=== PATIENT | male | born 1960 | race Caucasian/White ===

== ENCOUNTER 2017-07-28 17:33 | Inpatient (IN) | payer BC, OTHER, SELFPAY ==
[2017-07-28 18:44] LABS: #Eosinphils 0.2 thou/uL (0.0-0.7); #Lymphocytes 2.4 thou/uL (1.20-3.40); #Monocytes 0.6 thou/uL (0.11-0.59); #Neutrophils 4.1 thou/uL (1.40-6.50); %Eosinophils 2.3 % (0.0-10.0); %Lymphocytes 32.7 % (21.0-51.0); %Monocytes 8.1 % (0.0-10.0); Hematocrit 52.4 % (42.0-52.0); Mean Platelet Volume 8.6 fL (7.4-10.4); Red Blood Cell (RBC) Count 6.06 mill/uL (4.70-6.10); White Blood Cell (WBC) Count 7.2 thou/uL (4.8-10.8)
[2017-07-28 18:50] LABS: PTT 29.2 SEC (22.9-36.1); Prothrombin Time 14.1 SEC (12.0-14.7)
[2017-07-28 19:13] LABS: ALT (SGPT) 25 U/L (8-55); AST (SGOT) 29 U/L (5-34); Alkaline Phosphatase 67 U/L (40-150); Anion Gap 14 mmol/L (10-20); BUN (Urea Nitrogen) 18 mg/dL (8.4-25.7); Bilirubin, Total 0.6 mg/dL (0.2-1.2); Calc. Creatinine Clearance 0 mL/min (70-130); Calcium 9.4 mg/dL (7.8-10.44); Carbon Dioxide 20 mmol/L (22-29); Chloride 107 mmol/L (98-107); Estimated GFR-MDRD 66; Globulin 3.6 g/dL (2.4-3.5); Troponin I 0.014 ng/mL (< 0.028)
--- NOTE | 2017-07-28 19:53 | RAD ---
PORTABLE CHEST: Date: 07-28-17 History: Atrial fibrillation. Comparison: 04-15-17 FINDINGS: Cardiac silhouette and pulmonary vasculature are within normal limits for the technique of the study . The lungs are clear. Pacing pads noted on prior study are no longer seen. No other interval change . IMPRESSION: No acute cardiopulmonary process. POS: [facility]
[2017-07-28] MEDS ORDERED: Acetaminophen 325 MG TAB PO PRN ×2 (20:18→20:33)
[2017-07-28] MEDS ORDERED: Acetaminophen 650 MG Suppository PR PRN (20:18)
[2017-07-28] MEDS ORDERED: Ondansetron ODT 4 MG TAB SL PRN (20:33)
[2017-07-28] MEDS ORDERED: Ondansetron HCl/PF 4 MG/2 ML Vial IVP PRN (20:33)
[2017-07-28] MEDS ORDERED: HYDROcodone/Acetaminophen 5/325 mg Tablet PO PRN ×2 (20:33)
[2017-07-28 20:46] VITALS: BMI 25.7
[2017-07-28] MEDS ORDERED: Metoprolol Tartrate 25 MG TAB PO SCH (21:00)
[2017-07-28] MEDS ORDERED: Dronedarone HCl 400 MG TAB PO SCH (21:00)
[2017-07-28 21:40] LABS: Troponin I Less than 0.010 ng/mL (< 0.028)
[2017-07-28 21:55] LABS: Free T3 2.38 pg/mL (1.71-3.71)
[2017-07-28] MEDS: Apixaban 5 MG TAB PO SCH (22:02)
--- NOTE | 2017-07-28 22:59 | HP ---
DATE OF ADMISSION: 07/28/2017 PRIMARY CARE PHYSICIAN: Lopez Varner M.D. CHIEF COMPLAINT: Palpitations. HISTORY OF PRESENT ILLNESS: Mr. Guaman is a pleasant 57-year-old gentleman who was seen at [facility]. He reports that around 3 days ago, he developed rapid heart rate and palpitations after supper. He reports that it has been going on and off for the last 3 days. He reports feeling lightheaded. Tod ay morning, he woke up with a heart rate in the high 70s. He continued to be lightheaded. He, ther efore, came to the emergency room. He denies any fevers or chills. He denies any nausea or vomiting. He denies any chest pain. He de nies any abdominal pain. REVIEW OF SYSTEMS: The following complete review of systems was negative, unless otherwise mentione d in the HPI or below: Constitutional: Weight loss or gain, sense of well-being, ability to conduct usual activities, exer cise tolerance. Skin/Breast: Rash, itching, changes in hair growth or loss, nail changes, breast lumps, tenderness, swelling, nipple discharge. Eyes: Vision, double vision, tearing, blind spots, pain. ENT/Mouth: Headaches (location, time of onset, duration, precipitating factors), vertigo, lighthead edness, injury. Vision, double vision, tearing, blind spots, pain, nose bleeding, colds, obstruction , discharge, dental difficulties, gingival bleeding, dentures, neck stiffness, pain, tenderness, mas ses in thyroid or other areas. Cardiovascular: Precordial pain, substernal distress, palpitations, syncope, dyspnea on exertion, o rthopnea, nocturnal paroxysmal dyspnea, edema, cyanosis, hypertension, heart murmurs, varicosities, phlebitis, claudication. Respiratory: Pain, shortness of breath, wheezing, stridor, cough, hemoptysis, fever or night sweats . Gastrointestinal: Poor appetite, dysphagia, indigestion, abdominal pain, heartburn, eructation, ro[place]anna sea, vomiting, hematemesis, jaundice, constipation, or diarrhea, abnormal stools (ana paula-colored, rosalba y, bloody, greasy, foul smelling), flatulence, hemorrhoids, recent changes in bowel habits. Genitourinary: Urgency, frequency, dysuria, nocturia, hematuria, polyuria, oliguria, unusual (or ch velia in) color of urine, stones, hesitancy, change in size of stream, dribbling, acute retention or incontinence, libido, potency. Musculoskeletal: Pain, swelling, redness or heat of muscles or joints, limitation, of motion, muscu lar weakness, atrophy, cramps. Neurologic/Psychiatric: Convulsions, paralyses, tremor, incoordination, parasthesias, difficulties with memory of speech, sensory or motor disturbances, or muscular coordination (ataxia, tremor), emo tional problems, anxiety, depression, previous psychiatric care, unusual perceptions, hallucinations . Allergy/Immunologic: Skin rash, anemia, bleeding tendency, polydipsia, polyuria, intolerance to hea t or cold. PAST MEDICAL HISTORY: Significant for atrial fibrillation with ablations in March and June 2017 . PAST SURGICAL HISTORY: Significant for right shoulder surgery, appendectomy, and right hand surgery . SOCIAL HISTORY: The patient denies tobacco use, alcohol use, or recreational drug use. FAMILY HISTORY: Significant for heart disease in his grandfather. ALLERGIES: No known drug allergies. CURRENT MEDICATIONS: Include Eliquis 5 mg 2 times a day, Multaq 400 mg 2 times a day, started on , and metoprolol tartrate 25 mg daily, started on 07/26/2017. PHYSICAL EXAMINATION: GENERAL: Mr. Guaman is awake and alert, not in acute distress. VITAL SIGNS: Blood pressure is 111/72, pulse is 96, he is breathing at a rate of 16, and saturating 96% on room air. EYES: No scleral icterus. No conjunctival pallor. ENT: Moist mucous membranes, no oropharyngeal erythema or exudates. NECK: Supple, nontender, normal range of movement. Trachea is midline. RESPIRATORY: Accessory muscles of breathing not active. Chest wall movements are symmetric bilater ally. Lungs are clear to auscultation without wheeze, rhonchi, or crepitations. CARDIOVASCULAR: S1 and S2 are heard, irregular. Peripheral pulses are palpable. No carotid bruit, no pericardial rub. ABDOMEN: Soft, nontender, bowel sounds heard, no hepatomegaly, no splenomegaly. NEUROLOGIC: Cranial nerves II through XII intact, deep tendon reflexes 2+. SKIN: No rashes or subcutaneous nodules. PSYCHIATRIC: Normal mood, normal affect, the patient is oriented to time, place, and person. LYMPHATIC: No cervical lymphadenopathy. MUSCULOSKELETAL: Power is 5/5 in all 4 extremities, normal range of movement at all major extremiti es joints. LABORATORY DATA: Mr. Stuart's labs and investigations were reviewed. He had an electrocardiogram, which showed atrial fibrillation/flutter, no ST changes to suggest acute coronary syndrome. He also had a chest x-ray, which did not show any pulmonary infiltrates. Laboratory investigations show an unremarkable CBC, INR 1.1, and an unremarkable comprehensive metabolic profile. TSH is elevated at 6.8263. ASSESSMENT AND PLAN: Mr. Guaman is a pleasant 57-year-old gentleman who was seen at [facility] on 07/28/2017. His problem list includes: 1. Atrial fibrillation with rapid ventricular response: Mr. Guaman's ventricular response has dec reased after he was started on Cardizem drip. With improvement in the heart rate, we will admit Mr. Guaman to the hospital and continue him on Cardizem drip for now. We will consult Cardiology Serv ice for the opinion and help with further management. It appears that Mr. Guaman started Multaq an d metoprolol on his own now after symptoms started. We will hold those medications for now. We jimbo l continue Eliquis. 2. Elevated TSH: Check free T3 and free T4. LEVEL OF RISK: Moderate. LEVEL OF COMPLEXITY: Moderate.
[2017-07-29 00:08] LABS: Troponin I Less than 0.010 ng/mL (< 0.028)
[2017-07-29 05:49] LABS: #Basophils 0.1 thou/uL (0.0-0.2); #Eosinphils 0.1 thou/uL (0.0-0.7); #Lymphocytes 2.2 thou/uL (1.20-3.40); #Monocytes 0.7 thou/uL (0.11-0.59); #Neutrophils 4.2 thou/uL (1.40-6.50); %Basophils 0.7 % (0.0-1.0); %Eosinophils 1.7 % (0.0-10.0); %Lymphocytes 30.3 % (21.0-51.0); %Monocytes 9.3 % (0.0-10.0); Hematocrit 49.9 % (42.0-52.0); Mean Platelet Volume 8.2 fL (7.4-10.4); Red Blood Cell (RBC) Count 5.77 mill/uL (4.70-6.10); White Blood Cell (WBC) Count 7.3 thou/uL (4.8-10.8)
[2017-07-29 07:21] LABS: Chloride 107 mmol/L (98-107)
[2017-07-29 07:22] LABS: Calcium 9.2 mg/dL (7.8-10.44)
[2017-07-29 07:24] LABS: Anion Gap 11 mmol/L (10-20); Carbon Dioxide 24 mmol/L (22-29)
[2017-07-29 07:26] LABS: BUN (Urea Nitrogen) 20 mg/dL (8.4-25.7); Calc. Creatinine Clearance 71 mL/min (70-130); Estimated GFR-MDRD 65
[2017-07-29] MEDS: Apixaban 5 MG TAB PO SCH ×2 (09:19→20:42)
--- NOTE | 2017-07-29 11:29 | CON ---
DATE OF CONSULTATION: 07/29/2017 HISTORY: The patient is a 56-year-old gentleman with a long history of atrial fibrillation/flutter who presents with recurrent palpitations. The patient has a history of a cardiomyopathy. He was seen initially in 2002. He underwent a cardiac catheterization and was found to have normal coronary arteries. The patient has history of atrial fibrillation /flutter. He was admitted several months ago with rapid palpitations. He underwent radiofrequency ablation for atrial flutter. He underwent an echocardiogram at that time which revealed a mild decreased left ventricular ejection fraction of 40-45%. The patient subsequently underwent an ablation for atrial fibrillation in [place]. A few days ago the patient noted his heart was racing. He was told to restart his Multaq and Toprol. The patient came to the emergency room when his heart rate became very rapid. The patient states he felt dizzy. PAST MEDICAL HISTORY: 1. Cardiomyopathy. 2. GE reflux. PAST SURGICAL HISTORY: Appendectomy, hand surgery, shoulder surgery. MEDICATIONS ON ADMISSION: Eliquis 5 mg p.o. b.i.d., Multaq 400 b.i.d., Metoprolol 1 tablet daily. ALLERGIES: No known drug allergies. FAMILY HISTORY: No strong family history of coronary artery disease. REVIEW OF SYSTEMS: No history of easy bruising or bleeding, bright red blood per rectum. Ten-point system otherwise unremarkable. PHYSICAL EXAMINATION: GENERAL: Thin gentleman in no acute distress. VITAL SIGNS: Blood pressure is 111/68. NECK: No jugular venous distention, no carotid bruits. LUNGS: Clear to auscultation. HEART: Regular rate and rhythm, normal S1, S2, no murmurs. ABDOMEN: Nondistended. EXTREMITIES: No edema. SKIN: Warm and dry. NEUROLOGIC: Nonfocal. VASCULAR: Radial pulses 2+. LABORATORY DATA: Sodium 138, potassium 4.4, chloride 107, bicarbonate 24, BUN 20, creatinine 1.16, glucose 65, troponin less than 0.01. White blood cell count 7.3, hemoglobin 16.2, hematocrit 49.9, platelets are 208. INR is 1.1. EKG revealed atrial flutter with otherwise, unremarkable EKG. IMPRESSION: 1. Recurrent atrial flutter. 2. History of a cardiomyopathy. This gentleman presents with recurrent atrial flutter. We will ask EP to evaluate the patient. The patient will remain on Eliquis. Further recommendations will follow. MTDD
[2017-07-29] MEDS ORDERED: Dronedarone HCl 400 MG TAB PO SCH (15:00)
[2017-07-29] MEDS: Dronedarone HCl 400 MG TAB PO SCH (18:35)
--- NOTE | 2017-07-29 18:54 | PDOC.PN ---
- Subjective Encounter Start Date: 07/29/17 Encounter Start Time: 12:00 Patient seen and examined. No new complaints. No overnight events. Intermittent palpitations. - Objective MAR Reviewed: Yes Vital Signs & Weight: Vital Signs (12 hours) Temp Pulse Resp BP Pulse Ox 07/29/17 15:30 98.3 F 145 H 16 113/78 97 07/29/17 12:29 98 F 83 16 113/71 07/29/17 09:55 94 104/78 07/29/17 08:00 98 F 74 16 96 07/29/17 07:59 98 F 74 16 111/68 96 Weight Weight 159 lb 12.8 oz I&O: 07/28/17 07/29/17 07/30/17 06:59 06:59 06:59 Intake Total 733 987.5 Output Total 300 400 Balance 433 587.5 Result Diagrams: 07/30/17 05:35 07/30/17 05:35 EKG Reviewed by me: Yes (Tele Afib) Phys Exam - Physical Examination Constitutional: NAD Respiratory: no wheezing, no rhonchi Cardiovascular: no rub, irregular Gastrointestinal: soft, non-tender, positive bowel sounds Musculoskeletal: no edema Neurological: moves all 4 limbs Dx/Plan (1) Atrial flutter with rapid ventricular response Code(s): I48.92 - UNSPECIFIED ATRIAL FLUTTER Status: Acute Comment: Afib with RVR (2) CKD (chronic kidney disease) stage 2, GFR 60-89 ml/min Code(s): N18.2 - CHRONIC KIDNEY DISEASE, STAGE 2 (MILD) Status: Chronic (3) H/O cardiomyopathy Code(s): Z86.79 - PERSONAL HISTORY OF OTHER DISEASES OF THE CIRCULATORY SYSTEM Status: Chronic (4) Abnormal TSH Code(s): R94.6 - ABNORMAL RESULTS OF THYROID FUNCTION STUDIES Status: Acute Comment: normal free T4/free T3 - Plan cont current plan of care * Cardio/EP following * Cardioversion in AM * Cont current meds as below * On Cardizem drip * Will start Multaq per EP * Cont anticoag Review of Systems - Review of Systems Respiratory: negative: Cough, Dry, Shortness of Breath, Hemoptysis, SOB with Excertion, Pleuritic Pain, Sputum, Wheezing Cardiovascular: Palpitations. negative: Chest Pain, Orthopnea, Paroxysmal Noc. Dyspnea, Edema, Light Headedness Gastrointestinal: negative: Nausea, Vomiting, Abdominal Pain, Diarrhea, Constipation, Melena, Hematochezia, Other - Medications/Allergies Allergies/Adverse Reactions: Allergies Allergy/AdvReac Type Severity Reaction Status Date / Time No Known Drug Allergies Allergy Verified 07/28/17 20:56 Medications: Current Medications Acetaminophen (Tylenol) 650 mg PO Q4H PRN PRN Reason: Headache/Fever or Pain Acetaminophen (Tylenol) 650 mg NH Q4H PRN PRN Reason: Headache/Fever or Pain Apixaban (Eliquis) 5 mg PO BID [facility] Last Admin: 07/29/17 09:19 Dose: 5 mg Dronedarone (Multaq) 400 mg PO BID-[facility] Last Admin: 07/29/17 18:35 Dose: 400 mg Diltiazem HCl 125 mg/ Sodium (Chloride) 125 mls @ 2.5 mls/hr IVPB INF ELYSSA; 2.5 MG/HR PRN Reason: Protocol Last Admin: 07/29/17 09:59 Dose: 125 mls Sodium Chloride (Flush - Normal Saline) 10 ml IVF Q12HR ELYSSA Last Admin: 07/29/17 09:19 Dose: 10 ml Sodium Chloride (Flush - Normal Saline) 10 ml IVF PRN PRN PRN Reason: Saline Flush
[2017-07-30 05:51] LABS: #Eosinphils 0.1 thou/uL (0.0-0.7); #Monocytes 0.6 thou/uL (0.11-0.59); #Neutrophils 4.7 thou/uL (1.40-6.50); %Basophils 0.2 % (0.0-1.0); %Eosinophils 1.8 % (0.0-10.0); %Monocytes 7.5 % (0.0-10.0); Hematocrit 50.4 % (42.0-52.0); Mean Platelet Volume 8.2 fL (7.4-10.4); Red Blood Cell (RBC) Count 5.87 mill/uL (4.70-6.10); White Blood Cell (WBC) Count 7.5 thou/uL (4.8-10.8)
[2017-07-30 05:58] LABS: Anion Gap 11 mmol/L (10-20); BUN (Urea Nitrogen) 23 mg/dL (8.4-25.7); Calc. Creatinine Clearance 67 mL/min (70-130); Calcium 9.8 mg/dL (7.8-10.44); Carbon Dioxide 23 mmol/L (22-29); Chloride 108 mmol/L (98-107); Estimated GFR-MDRD 60
[2017-07-30] MEDS ORDERED: Propofol 1,000 MG/100 ML VIAL IV ONE (08:28)
[2017-07-30] MEDS ORDERED: Propofol 200 MG/20 ML VIAL ONE (08:34)
[2017-07-30] MEDS: Dronedarone HCl 400 MG TAB PO SCH (09:31)
[2017-07-30] MEDS: Apixaban 5 MG TAB PO SCH (09:31)
--- NOTE | 2017-07-30 11:14 | DIS ---
DATE OF ADMISSION: 07/28/2017 DATE OF DISCHARGE: 07/29/2017 DISCHARGE DISPOSITION: Home. FOLLOWUP: Follow up with primary care physician, Dr. Varner in 1 week. Follow up with Cardiology, Dr. Dontrell Shah in 10-14 days. ALLERGIES: No known drug allergies. The patient was seen and examined on the day of discharge. Denies any new complaints. No chest jonh n, shortness of breath or palpitations. DISCHARGE MEDICATIONS: Multaq 400 mg b.i.d. and Eliquis 5 mg b.i.d. BRIEF HOSPITAL COURSE: The patient is a 57-year-old male with atrial fibrillation, in the past pres ented to the hospital with palpitations. Patient currently takes Eliquis 5 mg b.i.d. Please refer to the history and physical dated 07/28/2017 for further details. The patient was admitted to the hospital with a diagnosis of atrial fibrillation with rapid ventricu lar response. He was started on low-dose Cardizem drip. Anticoagulation was continued. He underwe nt cardioversion earlier today. He has been cleared by Cardiology for discharge later today. Multa q has been added to his regimen. INPATIENT CONSULTANTS: 1. Cardiology, Dr. Dontrell Shah. 2. Electrophysiology, Dr. Currie. FINAL DIAGNOSES: 1. Atrial fibrillation with rapid ventricular response, converted to sinus rhythm after cardioversi on. 2. Chronic kidney disease, stage 2. 3. History of cardiomyopathy. 4. Abnormal TSH with normal free T3 and free T4. Plan of care was discussed with the patient. He stated understanding.
[2017-07-30 13:04] VITALS: BP 109/69; TEMP 98.3
--- NOTE | 2017-07-30 21:27 | PRG ---
DATE OF SERVICE: 07/30/2017 FOLLOWUP NOTE REFERRING PHYSICIAN: Dr. Shah. SUBJECTIVE: Mr. Guaman seems to be doing well today, still has palpitations, heart rates are impro patrick. OBJECTIVE DATA: VITAL SIGNS: This morning, blood pressure is 111/68, heart rate 74, respiratory rate 16, temperatur e 98 degrees Fahrenheit. GENERAL: Alert and oriented gentleman in no apparent distress. NECK: Supple. Jugular veins not distended. CHEST: Coarse without crackles. CARDIOVASCULAR: Heart sounds are irregular. S1, S2, variable. No murmur or gallop. ABDOMEN: Benign. Bowel sounds positive. EXTREMITIES: Lower extremities without edema, clubbing or cyanosis. DATABASE: Telemetry strips reveals atrial flutter. LABORATORY DATA: White count 7.5, hemoglobin 16.5, platelet count is 215. Sodium 138, potassium 4. 4, BUN 23, and creatinine 1.23. ASSESSMENT AND PLAN: 1. Mr. Guaman is a 57-year-old man with prior history of atrial arrhythmias. He had recent pulmon el venous isolation procedure. We would like to continue medical therapy, short term. We will dom ce him back on Multaq and cardioversion is planned today. Dr. Shah will perform that. 2. Chronic anticoagulation with Eliquis. Continue as well. 3. Outpatient followup.
--- NOTE | 2017-07-30 23:18 | CON ---
DATE OF CONSULTATION: 07/29/2017 REFERRINGS PHYSICIAN: Dr. Shah and Dr. Padilla. I am seeing Mr. Lopez at our [facility] telemetry floor as an electrophysiology consultan t. His problems are: 1. Recurrent atrial arrhythmias. A. Original presentation with atrial flutter, status post cavotricuspid isthmus ablation on 04/16/20 17. B. Recurrent atrial fibrillation, prompting pulmonary venous isolation procedure in 06/2017. 2. History of mildly decreased LV function by an echocardiogram at 40-45% on 04/18/2017, mild MR, m ild TR as well. 3. Oral anticoagulation. ALLERGIES: None noted. MEDICATIONS: At home include apixaban 5 mg twice a day. SUBJECTIVE: Mr. Guaman is returning with recurrent palpitations. He has been bothered by this rhy thm for last three days. He has mild lightheadedness with this. He came to the emergency room [facility]. At this point, he denies chest pain, no fever, chills or cough. No stroke-like symptoms. No neurol ogical deficits. No PND or orthopnea noted. No bleeding issues. REVIEW OF SYSTEMS: Rest of 12-point review of system otherwise unremarkable. PAST MEDICAL HISTORY: As above. SOCIAL HISTORY: Patient denies smoking, ETOH, or drug use. PAST SURGICAL HISTORY: Significant for appendectomy, right hand surgery and right shoulder surgery. FAMILY HISTORY: Significant for heart disease in grandfather. OBJECTIVE DATA: VITAL SIGNS: Blood pressure is 104/78, heart rate 94, respirations 16, temperature 98 degrees Fahre nheit. GENERAL: He is an alert and oriented man in no apparent distress. NECK: Supple. Jugular veins are not distended. CHEST: Coarse without crackles. CARDIAC: Heart sounds are regular and tachycardic. No murmur or gallop. ABDOMEN: Benign, bowel sounds positive. EXTREMITIES: Lower extremities without edema, clubbing or cyanosis. Pulses are adequate. NEUROLOGIC: Patient is nonfocal. MUSCULOSKELETAL: Without joint swelling or deformities. SKIN: Without rash. DATABASE: The EKG reviewed reveals an atrial flutter, has features of typically appearing flutter. LABORATORY DATA: White blood cell count 7.5, hemoglobin is 16.5, platelet count is 215. INR 1.1. ASSESSMENT AND PLAN: Mr. Guaman is a 57-year-old man with prior history of paroxysmal atrial fibri llation as far as atrial flutter. He had cavotricuspid isthmus ablation in March and left atrial pul monary venous isolation in June. Now has recurrence of atrial arrhythmias, likely to represent atypical atrial flutter, although typical features are also present on the EKG. At this point, he had a very recent ablation. I will continue medical therapy for now. He is well anticoagulated reasonably to cardiovert him on Multaq initiated today. He might need further AV nod al blocking agents as well if atrial fibrillation recurs. Continue Eliquis, arrange early followup.
--- NOTE | 2017-09-02 11:50 | OP ---
DATE OF PROCEDURE: 07/30/2017 PROCEDURE: Electrical cardioversion. INDICATION: Atrial flutter. DESCRIPTION OF PROCEDURE: The patient was taken to the PACU. The patient was sedated by anesthesiol emely. The patient was shocked with 50 joules of synchronized electricity. The patient converted to n ormal sinus rhythm. IMPRESSION: Successful electrical cardioversion.
== END 2017-07-30 14:21 | disposition home or self-care (01) | DRG 310 ==
LOC: ERS 17:33 → 2NO 19:38
PROVIDERS: ADMIT Internal Medicine; ATTEND Internal Medicine
PROC: 5A2204Z Restoration of Cardiac Rhythm, Single (ICD-10-PCS; principal; 2017-07-30)
DX: I48.0 Paroxysmal atrial fibrillation (principal); I42.0 Dilated cardiomyopathy; Z79.01 Long term (current) use of anticoagulants; N18.2 Chronic kidney disease, stage 2 (mild); K21.9 Gastro-esophageal reflux disease without esophagitis
CPT/HCPCS: 36415; 71010; 80048; 80053; 82553; 83735; 84439; 84443; 84481; 84484; 85025; 85610; 85730; 92960; 93005; 93010; 96365; 96366; A4216; J2704; J7050